=== PATIENT | female | born 1975 | race Caucasian/White ===

== ENCOUNTER 2023-11-06 21:23 | Inpatient (IN) | payer BC ==
[~2023-11-06] VITALS: Ht 162.6 cm; Wt 88.5 kg
[2023-11-06 21:28] VITALS: BP_SYST 164; PULSE 95; RESP 24; TEMP 98.4; O2SAT 100
[2023-11-06] MEDS: ASPIRIN 81 MG TAB.CHEW PO ONE (22:36)
[2023-11-06 23:47] LABS: BASOPHILS # (AUTO) 0.1 K/uL (0.0-0.2); BASOPHILS % (AUTO) 0.5 % (0.0-2.0); EOSINOPHILS # (AUTO) 0.1 K/uL (0.0-0.4); EOSINOPHILS % (AUTO) 0.6 % (0.0-4.0); HEMATOCRIT 40.3 % (36-48); HEMOGLOBIN 13.8 g/dL (12.0-16.0); LYMPHOCYTES # (AUTO) 2.3 K/uL (1.0-5.5); LYMPHOCYTES % (AUTO) 21.6 % (20.5-51.5); MEAN CORPUSCULAR HEMOGLOBIN 29 pg (27-31); MEAN CORPUSCULAR HGB CONC 34 % (32-36); MEAN CORPUSCULAR VOLUME 86 fL (79.0-98.0); MONOCYTES # (AUTO) 0.6 K/uL (0.0-1.0); MONOCYTES % (AUTO) 5.7 % (1.7-9.3); NEUTROPHILS # (AUTO) 7.7 K/uL (1.8-7.7); NEUTROPHILS % (AUTO) 71.6 % (40.0-70.0); PLATELET COUNT (AUTO) 389 K/uL (130-430); WHITE BLOOD COUNT (AUTO) 10.7 K/uL (4.8-10.8)
[2023-11-07 00:08] LABS: PROTHROMBIN TIME 9.9 SECS (9.5-12.5)
[2023-11-07 00:12] LABS: ALANINE AMINOTRANSFERASE 21 U/L (12-78); ALBUMIN 3.5 g/dL (3.4-4.8); ANION GAP 8 (5-15); ASPARTATE AMINOTRANSFERASE 11 U/L (10-37); BILIRUBIN,DIRECT 0.1 mg/dL (0.0-0.3); CALCIUM 9.9 mg/dL (8.4-11.0); CARBON DIOXIDE 28 mmol/L (23-29); CHLORIDE 107 mmol/L (98-107); CREATININE 0.81 mg/dL (0.55-1.30); GFR AFRICAN AMERICAN 96 mL/min (>90); GLUCOSE 153 mg/dL (74-106); POTASSIUM 4.1 mmol/L (3.5-5.1); SODIUM SERUM 143 mmol/L (136-145); TOTAL BILIRUBIN 0.3 mg/dL (0.0-1.0); TOTAL PROTEIN, SERUM 6.9 g/dL (6.4-8.3); UREA NITROGEN, BLOOD 25 mg/dL (8-21)
[2023-11-07 00:16] LABS: GFR NON AFRICAN-AMERICAN 80 mL/min (>90)
[2023-11-07] MEDS ORDERED: INSULIN REGULAR, HUMAN 100 UNITS/ML, 3 ML VIAL (humuLIN R) SUBCUT PRN (01:15)
[2023-11-07] MEDS: ONDANSETRON HCL 4 MG/2 ML VIAL IVP ONE (01:23)
[2023-11-07] MEDS: MORPHINE 4 MG INJ. 4 MG/ML VIAL IVP ONE (01:26)
[2023-11-07] MEDS ORDERED: GLUT5POW MC (02:13)
[2023-11-07] MEDS ORDERED: ASCO500T20 PO (02:13)
[2023-11-07] MEDS ORDERED: TURM500C9 PO (02:19)
[2023-11-07] MEDS ORDERED: MILK200C5 PO (02:19)
[2023-11-07] MEDS ORDERED: MAGN296S8 (02:19)
[2023-11-07] MEDS ORDERED: GLUT500C7 (02:19)
[2023-11-07] MEDS ORDERED: UBID50TA3 PO (02:19)
[2023-11-07] MEDS: NACL 0.9% 1,000 ML IV SCH (02:21)
[2023-11-07] MEDS ORDERED: LORazepam 2 MG/ML VIAL IVP PRN (08:45)
[2023-11-07] MEDS ORDERED: NALOXONE HCL 2 MG/2 ML SYR IVP PRN ×2 (08:45)
[2023-11-07] MEDS ORDERED: MORPHINE 2 MG/ML INJ. SYRINGE IVP PRN ×2 (08:45)
[2023-11-07] MEDS ORDERED: ZOLPIDEM TARTRATE 5 MG TABLET PO PRN (08:45)
[2023-11-07] MEDS ORDERED: MUPIROCIN 2% TOPICAL OINTMENT 22 GM NS PRN (08:45)
[2023-11-07] MEDS ORDERED: DOCUSATE SODIUM 100 MG CAPSULE PO PRN (08:45)
[2023-11-07] MEDS ORDERED: DEXTROSE 50% JECT 50 ML DISP.SYRIN IVP PRN (08:45)
[2023-11-07] MEDS ORDERED: ACETAMINOPHEN 325 MG TABLET PO PRN ×2 (08:45→11:00)
[2023-11-07] MEDS ORDERED: POTASSIUM CHLORIDE 20 MEQ TABLET.ER PO PRN (08:45)
[2023-11-07] MEDS ORDERED: MAGNESIUM SULFATE 50 ML IV PRN (08:45)
[2023-11-07] MEDS ORDERED: ONDANSETRON HCL 4 MG/2 ML VIAL IVP PRN (08:45)
[2023-11-07] MEDS ORDERED: PANTOPRAZOLE SODIUM 40 MG TAB PO SCH (09:00)
[2023-11-07] MEDS: ENOXAPARIN SODIUM 40 MG/0.4 ML SYRINGE SUBCUT SCH (10:24)
[2023-11-07 10:50] VITALS: BP_SYST 137; PULSE 89; RESP 18; TEMP 98.1
[2023-11-07] MEDS: PANTOPRAZOLE SODIUM 40 MG TAB PO SCH (11:37)
[2023-11-07 16:00] VITALS: BP_SYST 132; PULSE 82; RESP 18; TEMP 97.9; O2SAT 96
[2023-11-07 21:00] VITALS: BP_SYST 121; PULSE 75; RESP 18; TEMP 97.8; O2SAT 99
[2023-11-08 00:02] VITALS: BP_SYST 107; PULSE 72; RESP 20; TEMP 97.1; O2SAT 95
[2023-11-08 05:15] LABS: BASOPHILS % (AUTO) 0.7 % (0.0-2.0); EOSINOPHILS # (AUTO) 0.1 K/uL (0.0-0.4); EOSINOPHILS % (AUTO) 1.5 % (0.0-4.0); HEMATOCRIT 39.3 % (36-48); HEMOGLOBIN 13.2 g/dL (12.0-16.0); LYMPHOCYTES # (AUTO) 3.1 K/uL (1.0-5.5); LYMPHOCYTES % (AUTO) 40.2 % (20.5-51.5); MEAN CORPUSCULAR HEMOGLOBIN 29 pg (27-31); MEAN CORPUSCULAR HGB CONC 34 % (32-36); MEAN CORPUSCULAR VOLUME 88 fL (79.0-98.0); MONOCYTES # (AUTO) 0.6 K/uL (0.0-1.0); MONOCYTES % (AUTO) 7.4 % (1.7-9.3); NEUTROPHILS # (AUTO) 3.9 K/uL (1.8-7.7); NEUTROPHILS % (AUTO) 50.2 % (40.0-70.0); PLATELET COUNT (AUTO) 353 K/uL (130-430); RED BLOOD CELL COUNT(AUTO) 4.49 MIL/uL (4.2-6.2); RED CELL DISTRIBUTION WIDTH 13.3 % (9.0-15.0); WHITE BLOOD COUNT (AUTO) 7.7 K/uL (4.8-10.8)
[2023-11-08 05:48] LABS: ALBUMIN 3.1 g/dL (3.4-4.8); CREATININE 0.75 mg/dL (0.55-1.30); POTASSIUM 4.4 mmol/L (3.5-5.1); THYROID STIMULATING HORMONE 1.61 uIu/mL (0.34-4.82); TOTAL BILIRUBIN 0.7 mg/dL (0.0-1.0); TOTAL PROTEIN, SERUM 6.2 g/dL (6.4-8.3)
[2023-11-08 08:10] VITALS: BP_SYST 143; PULSE 68; RESP 16; TEMP 97.2; O2SAT 99
[2023-11-08] MEDS: INSULIN LISPRO SLIDING SCALE 100 UNITS/ML, 3 ML VIAL (humaLOG) SUBCUT PRN (11:10)
[2023-11-08 12:00] VITALS: BP_SYST 130; PULSE 89; RESP 16; TEMP 98; O2SAT 98
[2023-11-08 16:00] VITALS: BP_SYST 128; PULSE 84; RESP 16; TEMP 98.4; O2SAT 97
[2023-11-08 16:43] VITALS: BP_SYST 128; PULSE 84; RESP 16; TEMP 98.4; O2SAT 97
== END 2023-11-08 17:30 | disposition home or self-care (01) | DRG 282 ==
LOC: SED 21:23 → STU 11-07 01:02
PROVIDERS: ADMIT General Practice; ATTEND General Practice
DX: I21.9 Acute myocardial infarction, unspecified (principal); E78.00 Pure hypercholesterolemia, unspecified; E11.9 Type 2 diabetes mellitus without complications; E66.9 Obesity, unspecified; K21.9 Gastro-esophageal reflux disease without esophagitis; S89.82XA Other specified injuries of left lower leg, initial encounter; Z68.33 Body mass index [BMI] 33.0-33.9, adult; Z79.01 Long term (current) use of anticoagulants; Z88.2 Allergy status to sulfonamides; Z79.4 Long term (current) use of insulin; Z82.3 Family history of stroke; Z88.0 Allergy status to penicillin; Z90.710 Acquired absence of both cervix and uterus; X58.XXXA Exposure to other specified factors, initial encounter; Y93.89 Activity, other specified; Y92.89 Other specified places as the place of occurrence of the external cause; Y99.8 Other external cause status
CPT/HCPCS: 36415; 71045; 71250-TC; 80048; 80053; 80061; 80076; 82948; 83037; 83735; 83880; 84443; 84484; 85025; 85379; 85610; 85730; 93005; 93017; 93306; 99285; G0378; J1650; J2270; J2405